=== PATIENT | male | born 1995 | race Caucasian/White ===

== ENCOUNTER 2019-09-07 19:02 | Emergency (ER) | payer OTHER, SELFPAY ==
[2019-09-07 19:42] LABS: #Basophils 0.1 thou/uL (0.0-0.2); #Eosinphils 0.1 thou/uL (0.0-0.7); #Lymphocytes 2.7 thou/uL (1.20-3.40); #Monocytes 0.6 thou/uL (0.11-0.59); #Neutrophils 5.8 thou/uL (1.40-6.50); %Eosinophils 1.2 % (0.0-10.0); %Lymphocytes 28.6 % (21.0-51.0); %Monocytes 6.5 % (0.0-10.0); %Neutrophils 62.7 % (42.0-75.0); Mean Corpuscular HGB CONC 33.9 g/dL (32.0-36.0); Mean Corpuscular Hemoglobin 28.6 pg (27.0-31.0); Mean Corpuscular Volume 84.4 fL (78.0-98.0); Mean Platelet Volume 9.2 fL (7.4-10.4); Platelet Count 275 thou/uL (130-400); RBC Distribution Width 11.4 % (11.5-14.5); White Blood Cell (WBC) Count 9.3 thou/uL (4.8-10.8)
--- NOTE | 2019-09-07 19:43 | RAD ---
XR Chest 1 View Portable HISTORY: Fever, weakness COMPARISON: 09/10/2009 FINDINGS: The heart size is normal. The lungs are without focal areas of consolidation, pneumothorax or pleural effusions. IMPRESSION: No radiographic evidence of acute cardiopulmonary process.
[2019-09-07 19:57] LABS: Bilirubin Negative (Negative); Blood, Urine Negative (Negative); Clarity Clear (Clear); Glucose, Urine (Dipstick) Greater than 1000 mg/dL (Negative); Leukocyte Negative Leu/uL (Negative); Nitrite Negative (Negative); Protein, Urine (Dipstick) Negative (Neg-Trace); Urobilinogen Normal mg/dL (Less than 2)
[2019-09-07 20:01] LABS: ALT (SGPT) 69 U/L (8-55); AST (SGOT) 24 U/L (5-34); Albumin 4.6 g/dL (3.5-5.0); Alkaline Phosphatase 98 U/L (40-110); Anion Gap 16 mmol/L (10-20); BUN (Urea Nitrogen) 14 mg/dL (8.9-20.6); Bilirubin, Total 1.3 mg/dL (0.2-1.2); Calc. Creatinine Clearance 0 mL/min (70-130); Carbon Dioxide 22 mmol/L (22-29); Chloride 94 mmol/L (98-107); Estimated GFR-MDRD 66; Globulin 3.3 g/dL (2.4-3.5); Glucose 517 mg/dL (70-105); Lipase 16 U/L (8-78); Potassium 3.8 mmol/L (3.5-5.1); Protein, Total 7.9 g/dL (6.0-8.3); Sodium 128 mmol/L (136-145)
[2019-09-07] MEDS ORDERED: Insulin Regular 300 UNITS/3 ML VIAL ONE (20:08)
[2019-09-07 20:54] LABS: MONO NEGATIVE CONTROL ZONE White (Negative) (White); MONO POSITIVE CONTROL Pink Line (Positive) (PINK/RED); Mononucleosis NEGATIVE (NEGATIVE)
[2019-09-08 10:23] LABS: SARS-CoV-2 MS2 Positive; SARS-CoV-2 N Gene Negative; SARS-CoV-2 S Gene Negative; SARS-CoV-2 orf1ab Negative
== END 2019-09-07 22:15 | disposition home or self-care (01) ==
LOC: ERS 19:02
DX: E11.65 Type 2 diabetes mellitus with hyperglycemia (principal); R50.9 Fever, unspecified
CPT/HCPCS: 36416; 71045; 80053; 81003; 82010; 83690; 85025; 86308; 87040; 87081; 87430; 87635; 87804; 96361; 96374; J1815; U0003

== ENCOUNTER 2021-01-23 22:11 | Emergency (ER) | payer SELFPAY ==
[~2021-01-23 22:11] MED LIST: Iopamidol-370 76% 500 ML 1 ML ONE
[2021-01-23 23:30] LABS: #Lymphocytes 1.6 thou/uL (1.20-3.40); #Monocytes 0.5 thou/uL (0.11-0.59); #Neutrophils 3.5 thou/uL (1.40-6.50); %Basophils 0.1 % (0.0-1.0); %Eosinophils 0.5 % (0.0-10.0); %Lymphocytes 27.8 % (21.0-51.0); %Monocytes 8.2 % (0.0-10.0); %Neutrophils 63.4 % (42.0-75.0); Hemoglobin 15.7 g/dL (14.0-18.0); Mean Corpuscular HGB CONC 32.3 g/dL (32.0-36.0); Mean Corpuscular Hemoglobin 27.2 pg (27.0-31.0); Platelet Count 229 thou/uL (130-400); RBC Distribution Width 11.9 % (11.5-14.5); White Blood Cell (WBC) Count 5.6 thou/uL (4.8-10.8)
[2021-01-23 23:51] LABS: ALT (SGPT) 35 U/L (8-55); AST (SGOT) 24 U/L (5-34); Albumin 3.5 g/dL (3.5-5.0); Alkaline Phosphatase 75 U/L (40-110); Anion Gap 15 mmol/L (10-20); BUN (Urea Nitrogen) 11 mg/dL (8.9-20.6); Bilirubin, Total 0.5 mg/dL (0.2-1.2); Calc. Creatinine Clearance 0 mL/min (70-130); Calcium 8.4 mg/dL (7.8-10.44); Carbon Dioxide 21 mmol/L (22-29); Chloride 105 mmol/L (98-107); Globulin 2.9 g/dL (2.4-3.5); Glucose 366 mg/dL (70-105); Potassium 3.7 mmol/L (3.5-5.1); Protein, Total 6.4 g/dL (6.0-8.3); Sodium 137 mmol/L (136-145)
== END 2021-01-24 02:44 | disposition home or self-care (01) ==
LOC: ERS 22:11
DX: U07.1 COVID-19 (principal); E11.65 Type 2 diabetes mellitus with hyperglycemia; E86.1 Hypovolemia; R00.0 Tachycardia, unspecified
CPT/HCPCS: 36415; 71045; 71275; 80053; 84484; 85025; 93005; Q9967

== ENCOUNTER 2021-09-16 13:35 | Emergency (ER) | payer SELFPAY | END 2021-09-16 14:31 | disposition home or self-care (01) | LOC: ERS 13:35 | DX: M76.61 Achilles tendinitis, right leg (principal); M79.671 Pain in right foot; E11.40 Type 2 diabetes mellitus with diabetic neuropathy, unspecified; F17.290 Nicotine dependence, other tobacco product, uncomplicated; Z79.4 Long term (current) use of insulin ==

== ENCOUNTER 2023-01-17 05:40 | Inpatient (IN) | payer SELFPAY ==
[2023-01-17] MEDS ORDERED: Acetaminophen 500 MG TAB ONE (05:49)
[2023-01-17] MEDS ORDERED: Ketorolac Tromethamine 30 MG/ML VIAL ONE (05:49)
[2023-01-17] MEDS ORDERED: Cefepime 2 GM VIAL ONE (06:11)
[2023-01-17] MEDS ORDERED: Ondansetron PF 4 MG/2 ML Vial ONE (06:11)
[2023-01-17] MEDS ORDERED: VANCOMYCIN 2 GRAM/500 ML BAG 2 GM in Premix Bag 1 BAG IVPB SCH (06:30)
[2023-01-17 06:43] LABS: #Monocytes 0.5 thou/uL (0.11-0.59); #Neutrophils 6.2 thou/uL (1.40-6.50); %Basophils 0.4 % (0.0-1.0); %Lymphocytes 10.6 % (21.0-51.0); %Monocytes 7.1 % (0.0-10.0); %Neutrophils 81.6 % (42.0-75.0); Hematocrit 45.8 % (42.0-52.0); Hemoglobin 15.3 g/dL (14.0-18.0); Mean Corpuscular HGB CONC 33.4 g/dL (32.0-36.0); Mean Corpuscular Hemoglobin 27.2 pg (27.0-31.0); Mean Corpuscular Volume 81.3 fl (78.0-98.0); Mean Platelet Volume 11.4 fL (7.4-10.4); Platelet Count 201 10x3/uL (130-400); RBC Distribution Width 12.5 % (11.5-14.5); Red Blood Cell (RBC) Count 5.63 mill/uL (4.70-6.10); White Blood Cell (WBC) Count 7.6 10x3/uL (4.8-10.8)
[2023-01-17 07:12] LABS: ALT (SGPT) 23 U/L (8-55); AST (SGOT) 17 U/L (5-34); Albumin 4.2 g/dL (3.5-5.0); Alkaline Phosphatase 55 U/L (40-110); Anion Gap 17 mmol/L (10-20); BUN (Urea Nitrogen) 8 mg/dL (8.9-20.6); Bilirubin, Total 1.8 mg/dL (0.2-1.2); Calc. Creatinine Clearance 0 mL/min (70-130); Carbon Dioxide 22 mmol/L (22-29); Chloride 98 mmol/L (98-107); Estimated GFR 108; Glucose 234 mg/dL (70-105); Potassium 3.8 mmol/L (3.5-5.1); Protein, Total 7.2 g/dL (6.0-8.3); Sodium 133 mmol/L (136-145)
[2023-01-17 07:35] LABS: Actual Bicarbonate (HCO3v) 20.2 mEq/L (22-28); Base Excess -4.3 mEq/L (-2.0 to +3.0); Calcium, Ionized (venous) 1.05 mmol/L (1.16-1.32); Chloride (VBG) 101 mmol/L (98-106); Hematocrit-VBG 42 % (42.0-52.0); Hemoglobin (Hb) 14.4 g/dL (13.2-17.3); Potassium (VBG) 3.45 mmol/L (3.70-5.30); Sodium 131.5 mmol/L (133-146); pH (venous) 7.375 (7.32-7.43)
[2023-01-17 07:37] LABS: SARS-CoV-2 NAA Rapid Test Not Detected (NotDetected)
[2023-01-17] MEDS ORDERED: Glucagon 1 MG/ML KIT IM PRN (09:06)
[2023-01-17] MEDS ORDERED: Ondansetron ODT 4 MG TAB PO PRN (09:06)
[2023-01-17] MEDS ORDERED: Insulin Regular 300 UNITS/3 ML VIAL SC PRN (09:06)
[2023-01-17] MEDS ORDERED: Dextrose 50% Abboject 50 ML SYRINGE SLOW IVP PRN (09:06)
[2023-01-17] MEDS ORDERED: Dextrose 5% in Water 1,000 ML IV PRN (09:06)
[2023-01-17] MEDS ORDERED: HumaLOG 300 UNITS/3 ML VIAL SC SCH (09:30)
[2023-01-17 09:45] LABS: Bacteria/HPF None Seen HPF (None Seen); Bilirubin Negative (Negative); Blood, Urine Negative (Negative); CAUTI Indications for Culture Pelvic or flank pain; Glucose, Urine (Dipstick) 500 mg/dL (Negative); Ketone, Urine 80 mg/dL (Negative); Leukocyte Negative Leu/uL (Negative); Nitrite Negative (Negative); Protein, Urine (Dipstick) 300 mg/dL (Neg-Trace); Specific Gravity, Urine 1.036 (1.002-1.036); Squamous Epithelial None Seen HPF (0-3); Urobilinogen 6 mg/dL (Less than 2)
[2023-01-17 09:46] LABS: Clarity Hazy (Clear)
[2023-01-17 09:46] LABS: Hemoglobin A1c 11.2 % (4.0-6.0)
[2023-01-17 09:55] LABS: Urine Culture Reflex Yes Yes
[2023-01-17] MEDS ORDERED: HumaLOG 300 UNITS/3 ML VIAL ONE (09:56)
[2023-01-17 16:10] VITALS: BMI 37.7
[2023-01-17] MEDS ORDERED: Vancomycin 1 GM in Premix Bag 1 BAG IVPB SCH (21:00)
[2023-01-17] MEDS: VANCOMYCIN 2 GRAM/500 ML BAG 2 GM in Premix Bag 1 BAG IVPB SCH (21:14)
[2023-01-17] MEDS: HumaLOG 300 UNITS/3 ML VIAL SC SCH (21:14)
[2023-01-17] MEDS: Acetaminophen 325 MG TAB PO PRN (23:29)
[2023-01-18 07:21] LABS: Anion Gap 11 mmol/L (10-20); BUN (Urea Nitrogen) 9 mg/dL (8.9-20.6); Calc. Creatinine Clearance 267 mL/min (70-130); Calcium 8.6 mg/dL (7.8-10.44); Carbon Dioxide 24 mmol/L (22-29); Chloride 104 mmol/L (98-107); Estimated GFR 124; Glucose 151 mg/dL (70-105); Potassium 3.6 mmol/L (3.5-5.1); Sodium 135 mmol/L (136-145)
[2023-01-18] MEDS: HumaLOG 300 UNITS/3 ML VIAL SC SCH (09:25)
[2023-01-18] MEDS: VANCOMYCIN 2 GRAM/500 ML BAG 2 GM in Premix Bag 1 BAG IVPB SCH ×3 (09:25→20:42)
[2023-01-18] MEDS ORDERED: LevoFLOXacin 500 mg/D5W 500 MG in Premix Bag 1 BAG IVPB SCH (17:00)
[2023-01-18] MEDS: Insulin Regular 300 UNITS/3 ML VIAL SC PRN ×2 (18:10→20:32)
[2023-01-18 19:58] LABS: Vancomycin, Trough 8.1 ug/mL
[2023-01-18] MEDS: Lisinopril 10 MG TAB PO SCH (20:30)
[2023-01-18] MEDS: Gabapentin 100 MG CAP PO SCH (20:30)
[2023-01-18] MEDS: Atorvastatin Calcium 10 MG TAB PO SCH (20:31)
[2023-01-18] MEDS ORDERED: VANCOMYCIN 1.75 GM/500 ML BAG 1.75 GM in Premix Bag 1 BAG IVPB SCH (21:00)
[2023-01-18] MEDS ORDERED: Insulin Glargine 30 UNITS/0.3 ML VIAL SC SCH (21:00)
[2023-01-19] MEDS: Insulin Regular 300 UNITS/3 ML VIAL SC PRN ×2 (06:04→20:53)
[2023-01-19 06:38] LABS: #Eosinphils 0.1 thou/uL (0.0-0.7); #Monocytes 0.7 thou/uL (0.11-0.59); #Neutrophils 2.5 thou/uL (1.40-6.50); %Basophils 0.4 % (0.0-1.0); %Eosinophils 1.1 % (0.0-10.0); %Lymphocytes 30.9 % (21.0-51.0); %Monocytes 15.2 % (0.0-10.0); %Neutrophils 52.2 % (42.0-75.0); Hematocrit 38.7 % (42.0-52.0); Mean Corpuscular HGB CONC 33.6 g/dL (32.0-36.0); Mean Corpuscular Hemoglobin 27.6 pg (27.0-31.0); Mean Corpuscular Volume 82.2 fl (78.0-98.0); Mean Platelet Volume 11.2 fL (7.4-10.4); Platelet Count 187 10x3/uL (130-400); RBC Distribution Width 12.8 % (11.5-14.5); Red Blood Cell (RBC) Count 4.71 mill/uL (4.70-6.10); White Blood Cell (WBC) Count 4.7 10x3/uL (4.8-10.8)
[2023-01-19 07:06] LABS: Anion Gap 10 mmol/L (10-20); BUN (Urea Nitrogen) 7 mg/dL (8.9-20.6); Calc. Creatinine Clearance 316 mL/min (70-130); Calcium 8.6 mg/dL (7.8-10.44); Carbon Dioxide 25 mmol/L (22-29); Chloride 105 mmol/L (98-107); Estimated GFR 131; Glucose 213 mg/dL (70-105); Potassium 3.5 mmol/L (3.5-5.1); Sodium 136 mmol/L (136-145)
[2023-01-19] MEDS: VANCOMYCIN 2 GRAM/500 ML BAG 2 GM in Premix Bag 1 BAG IVPB SCH ×2 (09:33→20:45)
[2023-01-19] MEDS: Gabapentin 100 MG CAP PO SCH ×2 (09:34→20:44)
[2023-01-19] MEDS ORDERED: Cefepime 2 GM in Sodium Chloride 0.9% 100 ML IVPB SCH (14:15)
[2023-01-19] MEDS: Atorvastatin Calcium 10 MG TAB PO SCH (20:43)
[2023-01-19] MEDS: Lisinopril 10 MG TAB PO SCH (20:45)
[2023-01-19] MEDS ORDERED: Insulin Glargine 30 UNITS/0.3 ML VIAL SC SCH (21:00)
[2023-01-20] MEDS: Cefepime 2 GM in Sodium Chloride 0.9% 100 ML IVPB SCH ×2 (03:28→14:43)
[2023-01-20] MEDS: Insulin Regular 300 UNITS/3 ML VIAL SC PRN ×2 (06:09→20:09)
[2023-01-20] MEDS ORDERED: glyBURIDE 5 MG TAB PO SCH (07:30)
[2023-01-20 08:07] LABS: #Eosinphils 0.1 thou/uL (0.0-0.7); #Monocytes 0.8 thou/uL (0.11-0.59); #Neutrophils 2.4 thou/uL (1.40-6.50); %Basophils 0.4 % (0.0-1.0); %Eosinophils 2.3 % (0.0-10.0); %Lymphocytes 31.4 % (21.0-51.0); %Monocytes 15.9 % (0.0-10.0); Hematocrit 38.6 % (42.0-52.0); Hemoglobin 12.6 g/dL (14.0-18.0); Mean Corpuscular HGB CONC 32.6 g/dL (32.0-36.0); Mean Corpuscular Hemoglobin 27.1 pg (27.0-31.0); Mean Platelet Volume 10.9 fL (7.4-10.4); Platelet Count 211 10x3/uL (130-400); Red Blood Cell (RBC) Count 4.65 mill/uL (4.70-6.10); White Blood Cell (WBC) Count 4.7 10x3/uL (4.8-10.8)
[2023-01-20 08:28] LABS: Anion Gap 11 mmol/L (10-20); BUN (Urea Nitrogen) 7 mg/dL (8.9-20.6); Calc. Creatinine Clearance 312 mL/min (70-130); Calcium 8.7 mg/dL (7.8-10.44); Carbon Dioxide 24 mmol/L (22-29); Chloride 105 mmol/L (98-107); Estimated GFR 130; Glucose 234 mg/dL (70-105); Potassium 3.7 mmol/L (3.5-5.1); Sodium 136 mmol/L (136-145)
[2023-01-20 08:29] LABS: Vancomycin, Trough 5.7 ug/mL
[2023-01-20] MEDS: VANCOMYCIN 2 GRAM/500 ML BAG 2 GM in Premix Bag 1 BAG IVPB SCH ×3 (09:11→18:25)
[2023-01-20] MEDS: Gabapentin 100 MG CAP PO SCH ×2 (09:15→20:08)
[2023-01-20] MEDS: Atorvastatin Calcium 10 MG TAB PO SCH (20:07)
[2023-01-20] MEDS: Lisinopril 10 MG TAB PO SCH (20:08)
[2023-01-20] MEDS: Insulin Glargine 30 UNITS/0.3 ML VIAL SC SCH (20:08)
[2023-01-20] MEDS: Acetaminophen 325 MG TAB PO PRN (20:14)
[2023-01-21] MEDS: VANCOMYCIN 2 GRAM/500 ML BAG 2 GM in Premix Bag 1 BAG IVPB SCH ×3 (01:54→18:35)
[2023-01-21] MEDS: Cefepime 2 GM in Sodium Chloride 0.9% 100 ML IVPB SCH ×2 (01:54→16:13)
[2023-01-21] MEDS: Insulin Regular 300 UNITS/3 ML VIAL SC PRN ×2 (05:49→19:58)
[2023-01-21] MEDS: Insulin Glargine 30 UNITS/0.3 ML VIAL SC SCH ×2 (08:29→19:57)
[2023-01-21] MEDS: Gabapentin 100 MG CAP PO SCH ×2 (08:29→19:57)
[2023-01-21] MEDS: Acetaminophen 325 MG TAB PO PRN (08:34)
[2023-01-21 09:41] LABS: Vancomycin, Trough 16.1 ug/mL
[2023-01-21] MEDS: Atorvastatin Calcium 10 MG TAB PO SCH (19:57)
[2023-01-21] MEDS: Lisinopril 10 MG TAB PO SCH (19:57)
[2023-01-22] MEDS: Cefepime 2 GM in Sodium Chloride 0.9% 100 ML IVPB SCH (02:09)
[2023-01-22] MEDS: VANCOMYCIN 2 GRAM/500 ML BAG 2 GM in Premix Bag 1 BAG IVPB SCH ×2 (02:51→10:59)
[2023-01-22] MEDS: Insulin Regular 300 UNITS/3 ML VIAL SC PRN ×2 (06:15→13:03)
[2023-01-22] MEDS: Acetaminophen 325 MG TAB PO PRN (08:20)
[2023-01-22] MEDS: Insulin Glargine 30 UNITS/0.3 ML VIAL SC SCH (08:21)
[2023-01-22] MEDS: Gabapentin 100 MG CAP PO SCH (08:21)
[2023-01-22 15:05] VITALS: BP 127/75; TEMP 98.8
== END 2023-01-22 15:20 | disposition home or self-care (01) | DRG 638 ==
LOC: SUATTDRO 05:40 → ERS 05:40 → ERHOLD 08:42 → T4-A 14:42
PROVIDERS: ADMIT Internal Medicine; ATTEND Internal Medicine
DX: E10.621 Type 1 diabetes mellitus with foot ulcer (principal); L97.419 Non-pressure chronic ulcer of right heel and midfoot with unspecified severity; L97.429 Non-pressure chronic ulcer of left heel and midfoot with unspecified severity; E10.628 Type 1 diabetes mellitus with other skin complications; I10 Essential (primary) hypertension; E10.40 Type 1 diabetes mellitus with diabetic neuropathy, unspecified; E78.5 Hyperlipidemia, unspecified; Z20.822 Contact with and (suspected) exposure to COVID-19; L03.032 Cellulitis of left toe; E66.9 Obesity, unspecified; Z68.37 Body mass index [BMI] 37.0-37.9, adult; Z98.890 Other specified postprocedural states; Z88.0 Allergy status to penicillin; Z79.899 Other long term (current) drug therapy; Z79.85 Long-term (current) use of injectable non-insulin antidiabetic drugs
CPT/HCPCS: 36415; 36416; 71045; 80048; 80053; 80202; 81001; 82010; 82805; 83036; 83605; 85025; 87040; 87070; 87086; 87205; 96365; 96366; 96367; 96375; 97139; J0692; J1815; J1885; J1956; J2405; J3370; J3490; U0002